=== PATIENT | male | born 2005 | race Caucasian/White ===

== ENCOUNTER 2024-10-08 09:42 | Emergency (ER) | payer OTHER, SELFPAY ==
--- NOTE | 2024-10-08 | ECG_ITS ---
Test Reason : TACHYCARDIA Blood Pressure : */* mmHG Vent. Rate : 110 BPM Atrial Rate : 110 BPM P-R Int : 132 ms QRS Dur : 84 ms QT Int : 330 ms P-R-T Axes : 26 35 9 degrees QTcB Int : 446 ms Sinus tachycardia Otherwise normal ECG No previous ECGs available Referred By: Generic ED Physician Electronically Signed By: Delgado Lemon
[2024-10-08 09:45] VITALS: BP 154/114; PULSE 134; RESP 22; TEMP 37; O2SAT 100; BMI 59.2
--- NOTE | 2024-10-08 09:55 | ED_ITS ---
HPI - Neuro Symptoms/Deficit General Chief Complaint: Neuro Symptoms/Deficit Stated Complaint: MCGEE, dizzy, nausea, L arm weakness Time Seen by Provider: 10/08/24 09:55 Source: patient and family Mode of arrival: ambulatory Limitations: no limitations History of Present Illness ED Provider: HPI Narrative: 18-year-old male presenting with superficial discomfort over the scalp on the left side and tingling of left long-arm sometimes shaking intermittently throughout the day intermittent cloudy vision, recent antibiotics for presumptive sinus infection when he was seen in outpatient basis and a CT of the brain that was negative. Denies drug or alcohol use, otherwise healthy, he is significantly overweight, does a significant amount of screen time at home. Not physically active. Related Data Allergies Allergy/AdvReac Type Severity Reaction Status Date / Time No Known Allergies Allergy Verified 10/08/24 09:51 Review of Systems Constitutional: Constitutional: Reports as per [facility] Social History Social History Alcohol intake: never Physical Exam 2 Vital Signs: Vital Signs: Last Vital Signs Temp 98.6 F 10/08/24 09:45 Pulse 134 H 10/08/24 09:45 Resp 22 H 10/08/24 09:45 BP 154/114 H 10/08/24 09:45 Pulse Ox 100 10/08/24 09:45 O2 Del Method Room Air 10/08/24 09:45 BMI result Body Mass Index 59.2 Const: Other: * Gen: ?Pleasant young man, morbidly obese * HEENT: PERRLA, EOMI, MMM, * Neck: Supple, no LAD * CV: RRR, no obvious murmurs appreciated * Resp: ?No wheezing rales rhonchi no stridor moving air well * Abd: ?Bowel sounds are present, no tenderness no rebound no rigidity * MSK: FROM, strength 5/5 all extremities * Skin: Warm, dry, intact, * Neuro: ?Alert and oriented x3, moving upper and lower extremities symmetrically, no obvious facial asymmetry noted, no dysmetria, no sensory deficits in upper or lower extremities Medical Decision Making Medical Decision Making [facility] Narrative: I spoke quite a bit to patient and his mom regarding lifestyle changes, I suspect he has occipital neuralgia he has has short neck, poor posturing, spends 8-10 hours a day sitting playing video games at home, discussed the fact that we will need to have his eyes checked as well, there was no evidence for any ENT infections, he had a CT of the brain done recently that was negative, recommended that if this persists to have outpatient PCP follow up for brain MRI , of note patient initially presented with tachycardia hypotension and tachypnea, he is anxious and likely component of white coat syndrome, on discharge his vital signs have normalized after speaking with me, mom does state he has anxiety Neurologically otherwise intact Differential Diagnosis Differential Diagnoses: The differential diagnosis associated with the presentation includes Occipital neuralgia, migraines, cavernous venous thrombosis, migraines, stroke Independent Interpretation I performed an independent interpretation of an: EKG (110 beats per minute otherwise normal ECG without dysrhythmia, AV pamela blocks or ST-T changes to suspect underlying ACS, my independent interpretation) Discharge Plan Discharge Clinical Impression: Cervico-occipital neuralgia of left side Patient Disposition: Home, Self-Care Additional Instructions: I suspect your symptoms I caused by cervical occipital neuralgia causing symptoms and your arm and your scalp, I have had a fairly lengthy discussion with the your regarding lifestyle changes, I am reassured by the fact that you already had a CT of the brain, initially when you presented your heart rate was elevated, a blood pressure was elevated and you were breathing fast, this was likely due to the fact that you were somewhat anxious, at the end of our visit, your vital signs have returned to normal I do recommend that you monitor salt intake as you do have risk factors for developing high blood pressure If you do not have a PCP involved in the care please working obtaining a PCP as you may need additional studies such as outpatient brain MRI and re-evaluation Make sure your glasses are up-to-date And if you have any other issues or concerns never hesitate to come back to the ER for re-evaluation
[2024-10-08 10:27] VITALS: BP 121/54; PULSE 97; RESP 18; TEMP 37.2; O2SAT 97
[2024-10-08 10:38] LABS: MANUAL DIFF FLAG NO
[2024-10-08 10:39] LABS: Hematocrit 43.6 % (42.0-52.0); Hemoglobin 15.1 g/dl (14.0-18.0); Imm Gran Abs Auto 0.02 X10*3/uL (0.00-0.03); Imm Gran Pct Auto 0.2 % (0.0-0.4); Lymphocytes Absolute Auto 3.3 X10*3/uL (1.2-4.9); Mean Corpuscular HGB Conc 34.6 g/dl (31.0-36.0); Mean Corpuscular Hemoglobin 29.2 pg (27.0-33.0); Mean Corpuscular Volume 84.2 fL (80.0-98.0); NRBC Abs Auto 0.000 X10*3/uL (0.0-0.012); NRBC Pct Auto 0.0 /100WBC (0.0-0.2); Platelet Count 228 X10*3/uL (160-400); Red Blood Count 5.18 X10*6/uL (4.60-5.80); White Blood Count 10.3 X10*3/uL (4.8-10.8)
[2024-10-08 10:56] LABS: Alanine Aminotransferase 55 U/L (0-40); Albumin Level 4.7 g/dL (3.5-5.0); Alkaline Phosphatase 78 U/L (39-117); Anion Gap 13 (12-20); Aspartate Amino Transferase 29 U/L (5-37); Blood Urea Nitrogen 12 mg/dL (9-16); Calcium 9.4 mg/dL (8.4-10.2); Carbon Dioxide 26 mmol/L (22-29); Chloride 105 mmol/L (96-108); Creatinine Clr Calc Pharmacy 205.3; Estimated Glomerular Filt Rate > 60; Magnesium 1.9 mg/dL (1.6-2.6); Potassium 4.0 mmol/L (3.3-5.1); Sodium 140 mmol/L (135-145); Total Protein 8.0 g/dL (6.5-8.0)
[2024-10-08 11:17] VITALS: BP 121/54; PULSE 97; RESP 18; TEMP 37.2; O2SAT 97
[2024-10-08 11:44] LABS: Resp Syncy Virus RNA Qual PCR NEGATIVE (Negative); SARS COV2 PCR INHOUSE NEGATIVE (Negative)
== END 2024-10-08 11:18 | disposition home or self-care (01) ==
PROVIDERS: Emergency Provider Emergency Medicine
DX: M54.81 Occipital neuralgia (principal); R00.0 Tachycardia, unspecified; H53.8 Other visual disturbances
CPT/HCPCS: 80053; 83735; 85025; 87637; 93005; 99283; 99284

== ENCOUNTER → 2024-10-08 10:04 | Outpatient (BNV) | payer OTHER, SELFPAY | PROVIDERS: Emergency Provider Emergency Medicine; Visit Provider Internal Medicine Cardiovascular Disease | DX: R00.0 Tachycardia, unspecified (principal) | CPT/HCPCS: 93010 ==